=== PATIENT | male | born 1985 | race Caucasian/White ===

== ENCOUNTER 2021-08-27 21:00 | Emergency (ER) | payer OTHER ==
[~2021-08-27] VITALS: Ht 190.5 cm; Wt 74.8 kg
[2021-08-27] MEDS ORDERED: NOVOLOG100 UNIT/1 SUBQ (21:27)
[2021-08-27] MEDS ORDERED: LEVEMIR100 UNIT/1 (21:27)
[2021-08-27] MEDS ORDERED: NORCO5 PO (23:01)
[2021-08-27] MEDS ORDERED: CEPHALEXIN500 MG PO (23:01)
[2021-08-27 23:13] VITALS: BP 121/74
== END 2021-08-27 23:10 | disposition home or self-care (01) ==
LOC: ER 21:00
DX: S61.412A Laceration without foreign body of left hand, initial encounter (principal); E10.9 Type 1 diabetes mellitus without complications; F12.90 Cannabis use, unspecified, uncomplicated; Z79.4 Long term (current) use of insulin; W26.8XXA Contact with other sharp object(s), not elsewhere classified, initial encounter; Y93.89 Activity, other specified; Y92.89 Other specified places as the place of occurrence of the external cause; Y99.8 Other external cause status

== ENCOUNTER 2021-09-09 14:41 | Emergency (ER) | payer OTHER ==
[~2021-09-09] VITALS: Ht 190.5 cm; Wt 77.1 kg
[~2021-09-09 14:41] MED LIST: CEPHALEXIN500 MG PO; LEVEMIR100 UNIT/1; NORCO5 PO; NOVOLOG100 UNIT/1 SUBQ
[2021-09-09 14:47] VITALS: BP 133/84
[2021-09-09] MEDS ORDERED: TYLENOL325 M1 PO (16:17)
[2021-09-09] MEDS ORDERED: NAPROSYN500 MG PO (16:17)
[2021-09-09] MEDS ORDERED: KEFLEX250 MG PO (16:17)
== END 2021-09-09 16:46 | disposition home or self-care (01) ==
LOC: ER 14:41
DX: S61.512D Laceration without foreign body of left wrist, subsequent encounter (principal); E10.9 Type 1 diabetes mellitus without complications; Z79.4 Long term (current) use of insulin; Z79.899 Other long term (current) drug therapy; W45.8XXD Other foreign body or object entering through skin, subsequent encounter